=== PATIENT | male | born 1970 | race Caucasian/White ===

== ENCOUNTER 2016-11-19 16:40 | Inpatient (IN) ==
[2016-11-19 18:39] LABS: Basophils # 0.1 K/mcL (0.0-0.2); Basophils % 0.6 %; Eosinophils # 0.3 K/mcL (0.0-0.6); Eosinophils % 3.2 %; Hemoglobin 15.5 g/dL (12.9-16.9); Immature Granulocytes % 0.2 % (0-4); Lymphocytes # 2.4 K/mcL (0.6-4.6); Lymphocytes % 28.4 %; Mean Corpuscular Hemoglobin 28.3 pg (28.0-33.3); Mean Corpuscular Volume 85.8 fL (83.0-100.0); Mean Platelet Volume 10.5 fL (9.4-12.4); Monocytes # 0.6 K/mcL (0.0-1.3); Monocytes % 6.7 %; Neutrophils # 5.2 K/mcL (1.6-8.9); Platelet Count 237 K/mcL (140-400); Red Blood Count 5.48 M/mcL (4.19-5.50); Segmented Neutrophils % 60.9 %
[2016-11-19 18:44] LABS: Prothrombin Time 10.4 Seconds (9.4-12.1)
[2016-11-19 18:47] LABS: Activated Partial Thrombo Time 28.2 Seconds (26.0-36.0)
--- NOTE | 2016-11-19 18:47 | Emergency Department Note ---
Disposition Clinical Impression: Abnormal MRI of head, Hypertensive urgency Clinical Impression: (Ruled Out): Abnormal MRI of abdomen Disposition: Admitted As Inpatient Condition: Good Referrals: NO,PCP [Non-Partnered Physician] - Forms: ED Satisfaction Letter Time of Disposition: 21:12 Neuro HPI - General Chief Complaint: ED Neuro Symptoms/Deficit Stated Complaint: numbness to face Time Seen by Provider: 11/19/16 17:30 Source: patient Limitations: no limitations Nursing Notes Reviewed: Yes Vital Signs Reviewed: Yes - History of Present Illness HPI Narrative: 46-year-old male presents the emergency room for numbness to his face. Onset 3- 4 days ago. Thought it was worse on the right side. States he feels like the right side of his face was not working as well when he was trying to eat food over the past couple days. States he had some food that was falling off the crack of the right side of his mouth. His tongue felt weird at times that he is described as numbness or a taste sensation difference on the right side. He also had some left facial numbness at times. No arm or leg involvement. No vision changes. Denies any speech changes. Denies any strength problems. Does not feel weak on one side versus the other. He states he noticed his smile is crooked as well. Denies any other complaints. He does take a daily baby aspirin. Denies headache. States his blood pressures have been controlled at home on blood pressure medication. - Related Data Home Medications: Previous Rx's Medication Instructions Recorded MethylPREDNISolone [Medrol] 1 packet PO DAILY #1 packet 01/30/15 Albuterol Sulfate [Albuterol 1 puff IH Q6HR #1 hfa.aer.ad 07/30/16 Inhaler] Benzonatate [Tessalon] 100 mg PO TID #30 capsule 07/30/16 Levofloxacin [Levaquin] 750 mg PO DAILY #7 tablet 07/30/16 Promethazine/Codeine 5 ml PO Q4HR PRN #240 ml 07/30/16 [Phenergan/Codeine] Allergies/Adverse Reactions: Allergies Allergy/AdvReac Type Severity Reaction Status Date / Time No Known Allergies Allergy Verified 01/30/15 08:38 Review of Systems: Gen.: No fevers or chills or new weakness Eyes: Denies double vision or any vision changes Ears: Denies any otalgia Pharynx: Denies sore throat CV: Denies chest pain. Denies palpitations Respiratory: Denies any cough or sputum production. No shortness of breath. GI: Denies any nausea, vomiting, diarrhea, constipation. Denies abdominal pain Neuro: patient has noticed some numbness in the right and left cheek region. Skin: Denies any rashes or abrasions Psych: Denies any depression or suicidal or homicidal ideation Musculoskeletal: Denies any arthralgias or myalgias Past Medical History - Past Medical History Medical history: Reports: hyperlipidemia, hypertension Surgical history: Reports: other Psychiatric history: Reports: no psych history - Social History Smoking Status: Never smoker Smokeless Tobacco Status: No Alcohol use: Reports: none Drug use: Reports: none Physical Exam - General Limitations: no limitations General appearance: alert - Head Head exam: atraumatic, normocephalic - Eye Eye exam: Present: normal appearance, PERRL, EOMI - ENT ENT exam: normal exam - Neck Neck exam: Present: normal inspection - Chest Chest inspection: Present: normal inspection - Respiratory Respiratory exam: Present: normal lung sounds bilaterally - Cardiovascular Cardiovascular exam: Present: regular rate, normal rhythm, normal heart sounds - Abdominal Exam Abdominal exam: Present: soft, Non-Tender - Extremities Exam Extremities exam: Present: normal inspection - Back Exam Back exam: Present: normal inspection, full ROM - Neurological Exam Neurological exam: Present: alert, oriented X3, other - Expanded Neurological Exam Patient oriented to: Present: person, place, time Speech: Present: fluid speech Cranial nerves: EOM function (II, III, IV, ): Normal, facial sensation (V): Abnormal Right, facial palsy (VII): Abnormal Right (Patient has a right facial droop noted. Flattening of the right nasolabial fold.) Cerebellar function: finger to nose: Normal Motor strength - LUE: 5/5 Motor strength - RUE: 5/5 Motor strength - LLE: 5/5 Motor strength - RLE: 5/5 Coma Scale Eye Opening: Spontaneous Coma Scale Motor Response: Obeys Commands Coma Scale Verbal Response: Oriented Coma Scale Total: 15 - Psychiatric Psychiatric exam: Present: normal affect, normal mood - Skin Skin exam: Present: warm, dry, intact Course Course Narrative: Spoke with neurology.spoke with neurology. abnormal MRI brain. will need to be admitted for this. needs cartoids done and other imaging. also, has BP issues today. will admit for this as well. i have ordered hydralazine and ASA for him. Vital Signs Temperature 98.2 F 11/19/16 16:42 Pulse Rate 64 11/19/16 16:42 Respiratory Rate 18 11/19/16 16:42 Blood Pressure 189/111 11/19/16 16:42 O2 Sat by Pulse Oximetry 97 11/19/16 16:42 Temperature 98.2 F 11/19/16 16:42 Pulse Rate 63 11/19/16 20:47 Respiratory Rate 20 11/19/16 20:47 Blood Pressure 197/113 11/19/16 20:47 O2 Sat by Pulse Oximetry 95 11/19/16 20:47 Oxygen Delivery Oxygen Delivery Room Air Neuro Symptoms/Deficit - MDM Narrative Medical decision making narrative: Concerns for the right facial droop and flattening of the right nasolabial fold when smiling. ct brain neg. cxr neg. vss - Differential Diagnosis Likely: cerebrovascular accident - Medical Records Medical records reviewed: Yes I reviewed the patient's medical records. - Lab Data Lab results reviewed: Yes I reviewed the patient's lab results. Result diagrams: 11/19/16 18:20 11/19/16 18:20 Lab Results 11/19/16 11/19/16 11/19/16 Range/Units 18:20 18:20 18:20 WBC 8.6 (4.3-11.1) K/mcL RBC 5.48 (4.19-5.50) M/mcL Hgb 15.5 (12.9-16.9) g/dL Hct 47.0 (37.5-50.1) % MCV 85.8 (83.0-100.0) fL MCH 28.3 (28.0-33.3) pg MCHC 33.0 (31.6-35.5) g/dL RDW 14.0 (11.5-14.5) % Plt Count 237 (140-400) K/mcL MPV 10.5 (9.4-12.4) fL Immature Gran % 0.2 (0-4) % Seg Neutrophils % 60.9 % Lymphocytes % 28.4 % Monocytes % 6.7 % Eosinophils % 3.2 % Basophils % 0.6 % Neutrophils # 5.2 (1.6-8.9) K/mcL Lymphocytes # 2.4 (0.6-4.6) K/mcL Monocytes # 0.6 (0.0-1.3) K/mcL Eosinophils # 0.3 (0.0-0.6) K/mcL Basophils # 0.1 (0.0-0.2) K/mcL PT 10.4 (9.4-12.1) Seconds INR 1.0 APTT 28.2 (26.0-36.0) Seconds Sodium 142 (136-145) mEq/L Potassium 3.8 (3.5-4.5) mEq/L Chloride 107 (98-109) mEq/L Carbon Dioxide 27 (19-29) mEq/L BUN 21 (8-26) mg/dL Creatinine 0.95 (0.72-1.25) mg/dL Est GFR ( Amer) > 60 (> 60) Est GFR (Non-Af Amer) > 60 (> 60) BUN/Creatinine Ratio 22 (6-26) Glucose 87 (70-99) mg/dL Calculated Osmolality 296 (280-300) Calcium 8.9 (8.6-10.8) mg/dL Troponin I (0-0.03) ng/mL 11/19/16 Range/Units 18:20 WBC (4.3-11.1) K/mcL RBC (4.19-5.50) M/mcL Hgb (12.9-16.9) g/dL Hct (37.5-50.1) % MCV (83.0-100.0) fL MCH (28.0-33.3) pg MCHC (31.6-35.5) g/dL RDW (11.5-14.5) % Plt Count (140-400) K/mcL MPV (9.4-12.4) fL Immature Gran % (0-4) % Seg Neutrophils % % Lymphocytes % % Monocytes % % Eosinophils % % Basophils % % Neutrophils # (1.6-8.9) K/mcL Lymphocytes # (0.6-4.6) K/mcL Monocytes # (0.0-1.3) K/mcL Eosinophils # (0.0-0.6) K/mcL Basophils # (0.0-0.2) K/mcL PT (9.4-12.1) Seconds INR APTT (26.0-36.0) Seconds Sodium (136-145) mEq/L Potassium (3.5-4.5) mEq/L Chloride (98-109) mEq/L Carbon Dioxide (19-29) mEq/L BUN (8-26) mg/dL Creatinine (0.72-1.25) mg/dL Est GFR ( Amer) (> 60) Est GFR (Non-Af Amer) (> 60) BUN/Creatinine Ratio (6-26) Glucose (70-99) mg/dL Calculated Osmolality (280-300) Calcium (8.6-10.8) mg/dL Troponin I 0.06 H* (0-0.03) ng/mL - Radiology Data Radiology results reviewed: Yes I reviewed the patient's radiology results. - EKG Data EKG attestation: Yes I reviewed and interpreted this EKG. EKG results narrative: Rate is 60. Sinus rhythm. NJ interval 182. QRS 99. QTc 473. No signs of acute ischemia. TPA Checklist - LKW: 3-4.5 hrs Add. Warnings/Precautions Patient/family understanding: The patient/family members have been counseled and understood the risk, benefit , and alternatives of treatment.
[2016-11-19 18:51] LABS: BUN/Creatinine Ratio 22 (6-26); Blood Urea Nitrogen 21 mg/dL (8-26); Calcium 8.9 mg/dL (8.6-10.8); Carbon Dioxide 27 mEq/L (19-29); Chloride 107 mEq/L (98-109); Glucose 87 mg/dL (70-99); Osmolality,Calculated 296 (280-300); Potassium 3.8 mEq/L (3.5-4.5); Sodium 142 mEq/L (136-145); eGFR For African Americans > 60 (> 60); eGFR For Non-African Americans > 60 (> 60)
[2016-11-19] MEDS ORDERED: Aspirin 325 MG TABLET PO ONE (21:09)
[2016-11-19] MEDS ORDERED: Ondansetron 4 MG/2 ML VIAL IVP PRN (22:31)
[2016-11-19] MEDS ORDERED: Naloxone 0.4 MG/ML INJ IVP PRN (22:31)
[2016-11-19] MEDS: *HR* Heparin 5,000 UNIT/ML VIAL SQ SCH (23:15)
--- NOTE | 2016-11-19 23:18 | Internal Med History&Physical ---
Date of Encounter: 11/19/16 Time of Encounter: 23:00 Assessment and Plan (1) Facial droop Current visit: Yes Status: Acute Probable CVA Numbness and tingling over her right side of face and lips with facial nerve on the right side CT brain is negative for any acute intracranial process Chest x-ray is negative for any acute process EKG shows normal sinus rhythm with no acute ST-T changes MRI shows advanced small vessel ischemic changes with no acute infarct or hemorrhage Neurology, Dr. Fritz consult- will see in a.m. Continue aspirin and statin Echocardiogram and carotid Doppler pending Consult PT, OT, speech (2) Hypertension Current visit: Yes Status: Acute Essential hypertension, uncontrolled, continue home medications, continue IV hydralazine when necessary, monitor Qualifiers: Hypertension type: essential hypertension Qualified Code(s): I10 - Essential (primary) hypertension (3) Elevated troponin Current visit: Yes Status: Acute Slightly elevated troponin, we will trend the troponin Probably due to uncontrolled hypertension Continue aspirin and statin EKG normal sinus rhythm (4) Morbid obesity Current visit: Yes Status: Acute Advised weight loss Qualifiers: Obesity type: unspecified obesity type Qualified Code(s): E66.01 - Morbid ( severe) obesity due to excess calories (5) DVT prophylaxis Current visit: Yes Status: Acute Continue heparin subcutaneous Internal Medicine - H&P: HPI Admitted From: Emergency Dept History of present illness: Mr. Ledesma is a 46 year old male with past medical history of hyperlipidemia and hypertension. He presents to review with complaints of numbness and tingling over his face. He says it is mainly on the right side of his face. He feels numbness over his Route his lips. Started about 3-4 days ago. Symptoms have persisted and gradually worsened. Patient states he feels that his right side of face does not feel normal. He also complains of tingling of an numbness over his tongue and also a difference in his stay sensation. Patient does not have any focal deficits in upper or lower extremities. Normal speech. No visual changes. Patient does complain of mild blurring of vision but otherwise his vision and speech are fairly within normal limits. Patient denies chest pain, denies palpitations denies dizziness denies lightheadedness denies shortness of breath or any other problems. Symptoms have been persisting , with no alleviating or aggravating factors. No other associated symptoms. On examination patient is awake and alert. Not in any acute distress. He is able to provide history. Patient does have obvious right-sided facial droop blood pressure has been uncontrolled. Initial ED workup revealed normal labs except for mildly elevated troponin. We will trend her troponin. Unclear as to what caused the bump in troponin. Patient has been explained about his condition and plan of care in detail. He understood and agreed has not answered questions. Neurologist Dr. Fritz has been consulted from the ED, he will see patient in the a.m. CODE STATUS full code. Past Med Surg Social Fam HX - Past Medical History Medical history: hyperlipidemia, hypertension Psychiatric history: no psych history - Past Surgical History Surgical History: other (carpal tunnel surgery b/l) - Social History Smoking Status: Never smoker Smokeless Tobacco Status: No Alcohol use: none Drug use: none - Family History Father Adopted: [place]: Roberto Ledesma Age: 76 Family Member Ethnicity: Non- Living Status: Still Living Hx Family Cardiac Disorders: Yes Hx Family Respiratory Disorders: No Hx Family Cancer: No Hx Family GI Disorders: No Hx Family Genitourinary Disorders: No Internal Medicine - H&P: Meds Allopurinol [Zyloprim 300 MG] 300 mg PO DAILY 11/19/16 [History] Amlodipine Besylate 10 mg PO DAILY 11/19/16 [History] Aspirin Enteric Coated [Aspirin EC] 81 mg PO DAILY 11/19/16 [History] Doxazosin [Cardura] 4 mg PO BID 11/19/16 [History] Metoprolol [Lopressor] 100 mg PO BID 11/19/16 [History] Allergies No Known Allergies Allergy (Verified 01/30/15 08:38) All Systems PM: A 10-system review of systems was performed and is negative for pertinent findings except as documented above in the HPI. - Constitutional Vitals: Temp Pulse Resp BP Pulse Ox 98.0 F 63 15 194/98 92 11/19/16 22:43 11/19/16 22:43 11/19/16 22:43 11/19/16 22:43 11/19/16 22:43 General appearance: Present: A&O X 3, morbidly obese, no acute distress, answers questions appropriately - Head Head exam: Present: atraumatic - Eye Eye exam: Present: EOMI - ENT ENT exam: Present: mucous membranes moist - Neck Neck exam general surgery: Present: supple - Respiratory Respiratory exam: Present: CTAB. Absent: rhonchi, wheezes - Cardiovascular Cardiovascular exam: Present: RRR, +S1, +S2 - GI/Abdominal GI/Abdominal exam: Present: distended (Obese), soft. Absent: guarding, tenderness - Extremities Exam Extremities exam: Present: pedal edema (Bilateral lower legs 3+ pitting), radial pulses palpable and symetrical. Absent: cyanotic, tenderness - Neurological Exam Neurological exam: Present: alert, oriented X3, no focal deficits, strengths equal and symetr throughout, facial droop (Right-sided). Absent: speech deficit Internal Med - H&P Results - Labs CBC & Chem 7: 11/19/16 18:20 11/19/16 18:20
[2016-11-20 01:15] LABS: Hematocrit 47.7 % (37.5-50.1); Hemoglobin 15.5 g/dL (12.9-16.9); Mean Corpuscular HGB Conc 32.5 g/dL (31.6-35.5); Mean Corpuscular Hemoglobin 27.6 pg (28.0-33.3); Mean Platelet Volume 10.2 fL (9.4-12.4); Platelet Count 198 K/mcL (140-400); Red Blood Count 5.61 M/mcL (4.19-5.50); Red Cell Distribution Width 13.9 % (11.5-14.5)
[2016-11-20 01:27] LABS: BUN/Creatinine Ratio 22 (6-26); Blood Urea Nitrogen 17 mg/dL (8-26); Carbon Dioxide 20 mEq/L (19-29); Chloride 110 mEq/L (98-109); Chol/HDL Ratio 5.8 (0-4.9); Cholesterol 203 mg/dL (< 200); Glucose 79 mg/dL (70-99); HDL Cholesterol 35 mg/dL (40-59); LDL Cholesterol,Calculated 140 mg/dL (0-99); Magnesium 2.1 mg/dL (1.6-2.6); Osmolality,Calculated 288 (280-300); Potassium 3.6 mEq/L (3.5-4.5); Sodium 139 mEq/L (136-145); Triglycerides 140 mg/dL (< 150); eGFR For African Americans > 60 (> 60); eGFR For Non-African Americans > 60 (> 60)
[2016-11-20] MEDS: Acetaminophen 325 MG TABLET PO PRN ×2 (02:24→10:11)
[2016-11-20] MEDS ORDERED: Famotidine 20 MG/2 ML VIAL IVP SCH (06:00)
[2016-11-20] MEDS: Acetaminophen/Butalbital/CaffeineTABLET PO PRN ×2 (06:41→11:52)
[2016-11-20] MEDS ORDERED: Aspirin Enteric Coated 81 MG Tablet PO SCH (09:00)
[2016-11-20] MEDS ORDERED: Metoprolol 100 MG TABLET PO SCH (09:00)
[2016-11-20] MEDS ORDERED: amLODIPine 5 MG TABLET PO SCH (09:00)
[2016-11-20] MEDS ORDERED: Perflutren Lipid Microsphere 1.3 ML in 0.9 % Sodium Chloride 8.7 ML IVP ONE (09:27)
[2016-11-20] MEDS: *HR* Heparin 5,000 UNIT/ML VIAL SQ SCH ×2 (10:10→16:34)
--- NOTE | 2016-11-20 11:06 | Neurology - Consult Note ---
<Juan Montenegro - Last Filed: 11/20/16 13:38> Date of Encounter: 11/20/16 Time of Encounter: 10:30 Assessment and Plan (1) CVA (cerebral vascular accident) Current Visit: Yes Status: Acute Patient's current assessment is to discern stroke/TIA versus Ceja's palsy. Patient's history of sudden onset of right-sided facial sensation changes numbness tingling and drooping of the right corner of his mouth extension across his forehead which is currently improved some. Patient states she had difficulty closing his right eye time and lifting his right brow as well as difficulty mobilizing the food from his right lower vehicle area and decrease in taste. Patient states his food tasted bland. Patient did not think to come to the hospital for evaluation until he noticed an elevation of his blood pressure 1 day ago. Onset initial symptoms somewhere around 4 days ago. Patient's complete physical exam to include neurologic exam was unremarkable with the exception of slight asymmetry of the face was drooping to the right corner of the mouth more noticeable with smiling. Patient has no loss of sensation and mild decrease in strength in elevation of right brow and unable to maintain pressure in his cheeks. The patient feels his cheeks with air he is unable to form a tight seal with his lips. History of Present Illness Chief complaint: Right sided facial weakness HPI: Mr. Ledesma is a 46 year old male with a past medical history for hypertension and hyperlipidemia. Patient states that approximately 4 days ago. Patient states he noticed a numbing sensation to the right side of his face upon awakening and thoughts he placed too much pressure on that side of face while sleeping but while attempting to eat food around lunchtime, he noticed some difficulty trying to mobilize food from the right pupil area and also noticed a change in taste of his food. He stated reduction of flavor. His food tasted almost blind. Patient states no change in sensation smell, no change in hearing, noticed some fuzziness to his vision. Denies chest pain, extremity weakness, shortness of breath any worsening usual (has shortness of breath with activity), unsure of any shortness of breath episodes at rest. Patient states that he has noticed some increased frequency and episodes of fluttering in his chest prior to initial onset of his symptoms. Patient states he attributed everything to excessive body weight and being out of shape and thought he placed much pressure on the right side of his face during sleep. Patient was worried about his blood pressure which she states was 179/110 which prompted him to be seen in the emergency department and that to his admission Patient's currently unemployed secondary to lower back chronic pain issues, patient denies tobacco use, patient denies alcohol use, patient denies illicit drug use. Patient complains of a headache overnight and started approximately 2100 hrs. when they go bilaterally squeezing top of his head with increased pressure-like pain behind both eyes. Began as a 4/10 and elevated to 8/10 currently 2/10. Patient also reports having acute blurriness to his vision currently resolved. Past Med Surg Social Fam HX - Past Medical History Attestation: Yes The following information was validated with the patient. Source: patient Medical history: hyperlipidemia, hypertension Psychiatric history: no psych history - Past Surgical History Surgical History: other (carpal tunnel surgery b/l) - Social History Smoking Status: Never smoker Smokeless Tobacco Status: No Alcohol use: none Drug use: none - Family History Father Adopted: [place]: Roberto Ledesma Age: 76 Family Member Ethnicity: Non- Living Status: Still Living Hx Family Cardiac Disorders: Yes Hx Family Respiratory Disorders: No Hx Family Cancer: No Hx Family GI Disorders: No Hx Family Genitourinary Disorders: No Medications and Allergies Allopurinol [Zyloprim 300 MG] 300 mg PO DAILY 11/19/16 [History] Amlodipine Besylate 10 mg PO DAILY 11/19/16 [History] Aspirin Enteric Coated [Aspirin EC] 81 mg PO DAILY 11/19/16 [History] Doxazosin [Cardura] 4 mg PO BID 11/19/16 [History] Metoprolol [Lopressor] 100 mg PO BID 11/19/16 [History] Allergies No Known Allergies Allergy (Verified 01/30/15 08:38) All Systems: A 10-system review of systems was performed and is negative for pertinent findings except as documented above in the HPI. - Constitutional Constitutional ROS IM: no weakness - Nose, Mouth, Throat Nose, mouth and throat: as per HPI, no abnormal hearing, no dental pain, no dry mouth, no dysphagia, no epistaxis, no facial pain, no lip swelling, no mouth lesions, no mouth pain, no nasal congestion, no nasal discharge, no nasal obstruction, no neck pain, no nose pain, no odynophagia, no sinus pressure, no sore throat, no throat swelling, no tongue swelling, no vertigo Physical Examination - Vital Signs Vital Signs: Initial Vital Signs Temp Pulse Resp BP Pulse Ox 98.2 F 64 18 189/111 97 11/19/16 16:42 11/19/16 16:42 11/19/16 16:42 11/19/16 16:42 11/19/16 16:42 - Exam Exam: -General Appearance: Patient is a 46-year-old male who is alert and oriented 3 lying in bed on his left side. Patient does not appear toxic. Patient is in no acute distress, -Neurological exam: Cranial nerves II-12 intact, no focal deficits observed, strength equal 5/5 bilaterally in upper and lower extremities, cerebellar motion test negative with rapidly alternating motions bilaterally upper and lower extremities performed without issue. Negative loss of sensation - Head Head exam: atraumatic, normocephalic, normal inspection - Eye Eye exam: Present: normal appearance, PERRL, EOMI, negative for scleral icterus negative for conjunctival pallor, no nystagmus - ENT ENT exam: normal exam, normal oropharynx, mucous membranes moist, poor dentition - Neck Neck exam: Present: normal inspection, full ROM, trachea midline, negative JVD - Chest Chest inspection: Present: Patient has bilateral equal rise and fall of chest wall. Non-tender to palpation. - Respiratory Respiratory exam: Clear to auscultation bilaterally without wheezes rales or rhonchi Cardiovascular Cardiovascular exam: Present: regular rate, normal rhythm, normal heart sounds, without murmurs rubs or gallops. - Abdominal Exam Abdominal exam: Present: soft, nondistended, Non-Tender light and deep palpation in all quadrants. Bowel sounds normoactive throughout all 4 quadrants. Negative for hyper or hyperresonance. - Extremities Exam Extremities exam: Present: normal inspection, full ROM pulses equal regular bilaterally in upper and lower extremities at radial and dorsal pedal locations , - Back Exam Back exam: Present: normal inspection, full ROM. - Psychiatric Psychiatric exam: Present: normal affect, normal mood - Skin Skin exam: Present: warm, dry, intact, normal color - Constitutional General appearance: comfortable - Neurologic Detailed motor examination: grossly full strength in all extremities, full strength in all major muscle groups Motor examination - right side: 5/5: deltoids, biceps, triceps, wrist flexion, wrist extension, tax accounting assistant, hip flexors, tibialis Anterior, quadriceps, toe extension (EHL), plantarflexion Motor examination - left side: 5/5: deltoids, biceps, triceps, wrist flexion, wrist extension, hip flexors, tax accounting assistant, quadriceps, tibialis Anterior, toe extension (EHL), plantarflexion Detailed sensory examination: intact, light touch Reflex and gait examination: intact Reflexes: Biceps: 2+, Triceps: 2+, Brachioradialis: 2+, Patella: 2+, Achilles: 2 + Mental Status Examination: awake, alert, oriented to person, oriented to place, oriented to time, follows commands appropriately, answers questions appropriately, no agnosia, no aphasia, no aproxia Cranial nerve examination: PERRL, EOMI, visual vicente intact, corneal reflexes brisk symmetrically, sensory to face intact, mastication intact, no dysarthria, hearing is intact symmetrically, soft palate elevates bilaterally upon phonation , gag reflex intact, flexes SCM and trapezius muscles symmetrically with full power, tongue protrudes midline, no atrophy or facial fasiculations present Results - Laboratory Findings CBC and BMP: 11/20/16 00:51 06 00:51 Abnormal lab findings: Abnormal lab results RBC 5.61 M/mcL (4.19-5.50) H 11/20/16 00:51 MCH 27.6 pg (28.0-33.3) L 11/20/16 00:51 Chloride 110 mEq/L (98-109) H 11/20/16 00:51 Troponin I 0.05 ng/mL (0-0.03) H* 11/20/16 07:14 Cholesterol 203 mg/dL (< 200) H 11/20/16 00:51 LDL Cholesterol, Calc 140 mg/dL (0-99) H 11/20/16 00:51 HDL Cholesterol 35 mg/dL (40-59) L 11/20/16 00:51 Cholesterol/HDL Ratio 5.8 (0-4.9) H 11/20/16 00:51 - Diagnostic Findings EKG: image reviewed Additional findings: Chest X-Ray 11/19/16 18:03 IMPRESSION: No acute process. D/ / Diogenes Joya MD / Diogenes Joya MD Interpreting Provider: Diogenes Joya MD Head CT 11/19/16 18:08 IMPRESSION: No acute intracranial abnormality. D/ / Bhanu Jain MD / Bhanu Jain MD Interpreting Provider: Bhanu Jain MD Brain MRI 11/19/16 18:51 IMPRESSION: Multifocal increased T2 and FLAIR signal in the white matter as described. Advanced small vessel ischemic changes are favored over a demyelinating process. Question small hyperintense T2 signal lesion in the base of the pituitary. No acute infarct, mass or hemorrhage D/ / Wing Valle / Wing Valle Interpreting Provider: Wing Valle Consult Discharge Plan - Plan Referrals: Mario Neal DO [Primary Care Provider] - <Diogenes Fritz - Last Filed: 11/20/16 15:31> Date of Encounter: 11/20/16 Time of Encounter: 15:22 Assessment and Plan (1) Right-sided Ceja's palsy Current Visit: Yes Status: Acute This gentleman is experiencing right-sided Ceja's palsy. His neurologic examination is consistent with a lower motor neuron seventh nerve palsy. He has weakness of the right frontalis muscle, weakness of the right orbicularis oculi slight flattening of the nasolabial fold and slight weakness of the right orbicularis skyler. He has normal strength bulk and tone of the upper and lower extremities throughout. He also had some minor differences in taste sensation. I am encouraged however that he will make a full recovery. I would recommend checking a Lyme titer. I would also recommend discharging him on a week of acyclovir and a tapering dose of prednisone. Although his MRI scan was negative for acute infarct, it did show evidence of chronic ischemic microvascular changes scattered throughout. His blood pressure was severely elevated upon admission with a systolic of 190s to 200 and diastolic as high as 100+. I did recommend that he follow up with his family care provider upon discharge for aggressive management of his hypertension. He also has a diagnosis of sleep apnea, however he is not currently compliant with his CPAP. I did spend time to educate him about the significance of sleep apnea as it pertains to the development of diabetes, myocardial infarction, stroke, and sudden . May discharge him at your discretion. History of Present Illness HPI: The chart was reviewed, the patient was seen and examined independently. The case was discussed with Dr. Montenegro. I agree with his assessment as stated above. All Systems: A 10-system review of systems was performed and is negative for pertinent findings except as documented above in the HPI. Review of Systems: 10 point review of systems is consistent with a history of present illness and is otherwise negative. Physical Examination - Vital Signs Vital Signs: Initial Vital Signs Temp Pulse Resp BP Pulse Ox 98.2 F 64 18 189/111 97 11/19/16 16:42 11/19/16 16:42 11/19/16 16:42 11/19/16 16:42 11/19/16 16:42 Results - Laboratory Findings CBC and BMP: 11/20/16 00:51 11/20/16 00:51 Abnormal lab findings: Abnormal lab results RBC 5.61 M/mcL (4.19-5.50) H 11/20/16 00:51 MCH 27.6 pg (28.0-33.3) L 11/20/16 00:51 Chloride 110 mEq/L (98-109) H 11/20/16 00:51 Troponin I 0.05 ng/mL (0-0.03) H* 11/20/16 12:42 Cholesterol 203 mg/dL (< 200) H 11/20/16 00:51 LDL Cholesterol, Calc 140 mg/dL (0-99) H 11/20/16 00:51 HDL Cholesterol 35 mg/dL (40-59) L 11/20/16 00:51 Cholesterol/HDL Ratio 5.8 (0-4.9) H 11/20/16 00:51
--- NOTE | 2016-11-20 15:41 | Electrocardiograph Report ---
[address] [address] Test Date: 2016-11-19 Pat Name: Roberto Ledesma Department: 102 Room: 2A34 Gender: M Ict Trainer: Silvia : 1970 Requested By: Reena Hdz Order Number: [id number] Reading MD: Samantha Mckinney Measurements Intervals [place] Rate: 60 P: 41 AK: 182 QRS: 22 QRSD: 99 T: 35 QT: 472 QTc: 473 Interpretive Statements SINUS RHYTHM PROLONGED QT INTERVAL Electronically Signed On 11-20-2016 15:40:02 EDT by Samantha Mckinney
--- NOTE | 2016-11-20 15:44 | Discharge Summary ---
Date of Encounter: 11/20/16 Time of Encounter: 15:00 - Discharge Diagnosis (1) Morbid obesity Priority: Secondary Status: Acute Qualifiers: Obesity type: unspecified obesity type Qualified Code(s): E66.01 - Morbid ( severe) obesity due to excess calories (2) Facial droop Priority: Primary Status: Acute (3) DVT prophylaxis Priority: Secondary Status: Acute (4) Hypertension Priority: Secondary Status: Acute Qualifiers: Hypertension type: essential hypertension Qualified Code(s): I10 - Essential (primary) hypertension (5) Right-sided Ceja's palsy Priority: Primary Status: Acute - Discharge Medications Prescriptions: Acyclovir [Zovirax] 200 mg PO 5XD #35 capsule predniSONE [PredniSONE] See Taper PO DAILY #21 tablet Home Medications: Allopurinol [Zyloprim 300 MG] 300 mg PO DAILY 11/19/16 [History] Amlodipine Besylate 10 mg PO DAILY 11/19/16 [History] Aspirin Enteric Coated [Aspirin EC] 81 mg PO DAILY 11/19/16 [History] Doxazosin [Cardura] 4 mg PO BID 11/19/16 [History] Metoprolol [Lopressor] 100 mg PO BID 11/19/16 [History] Acyclovir [Zovirax] 200 mg PO 5XD #35 capsule 11/20/16 [Rx] predniSONE [PredniSONE] See Taper PO DAILY #21 tablet 11/20/16 [Rx] Allergies/Adverse Reactions: Allergies No Known Allergies Allergy (Verified 01/30/15 08:38) Procedures/tests Complete & Pending: Procedures Performed prior 72 hours Category Date Time Status ECG 12 lead ECG [ECG] Routine Y 11/19/16 18:57 Completed EV carotid duplex imaging BI Routine Y 11/19/16 23:44 Completed Date of admission: 11/19/16 23:36 Primary care physician: Mario Neal DO Discharging clinician: Reena Hdz Anticipated date of discharge: 11/20/16 - Patient Status Disposition: Home, Self-Care Condition: Good Overall status at discharge: patient is progressing back to baseline - Discharge Instructions Follow Up With: Mario Neal DO [Primary Care Provider] - - Diet and Activity Activity: increase activity as tolerated Diet: advance to your usual diet Interval History: Mr. Ledesma is a 46 year old male with past medical history of hyperlipidemia and hypertension. He presents to review with complaints of numbness and tingling over his face. He says it is mainly on the right side of his face. He feels numbness over his Route his lips. Started about 3-4 days ago. Symptoms have persisted and gradually worsened. Patient states he feels that his right side of face does not feel normal. He also complains of tingling of an numbness over his tongue and also a difference in his stay sensation. Patient does not have any focal deficits in upper or lower extremities. Normal speech. No visual changes. Patient does complain of mild blurring of vision but otherwise his vision and speech are fairly within normal limits. Patient denies chest pain, denies palpitations denies dizziness denies lightheadedness denies shortness of breath or any other problems. Symptoms have been persisting , with no alleviating or aggravating factors. No other associated symptoms. On examination patient is awake and alert. Not in any acute distress. He is able to provide history. Patient does have obvious right-sided facial droop blood pressure has been uncontrolled. Initial ED workup revealed normal labs except for mildly elevated troponin. We will trend her troponin. Unclear as to what caused the bump in troponin. Patient has been explained about his condition and plan of care in detail. He understood and agreed has not answered questions. Neurologist Dr. Fritz has been consulted from the ED, he will see patient in the a.m. CODE STATUS full code. Hospital course: Mr. Ledesma is a 46 year old male admitted for right sided facial drop. Patient had MRI done, which is unremarkable. Neurology consult was called and saw patient. Diagnosed as Ceja's palsy. Patient will discharge today with taper down steroid and acyclovir x 7 days, per neurology. I saw and examined pt today. He feels the facial drop has improved. Vitals stable. No other neuro deficits. Pt is stable to discharge home. - Time Spent with Patient Total time spent providing and/or coordinating discharge services: 40 min Greater than 30 minutes - Constitutional Vitals: Temp Pulse Resp BP Pulse Ox 97.7 F 52 14 158/96 96 11/20/16 12:00 11/20/16 12:00 11/20/16 12:00 11/20/16 12:00 11/20/16 12:00 General appearance: Present: A&O X 3, morbidly obese, no acute distress, answers questions appropriately - Head Head exam: Present: atraumatic, normocephalic - Eye Eye exam: Present: PERRL, conjuntiva pink, sclera anicteric Pupils: Present: PERRL - Neck Neck exam general surgery: Present: supple, trachea midline. Absent: lymphadenopathy - Respiratory Respiratory exam: Present: CTAB. Absent: accessory muscle use, rales, rhonchi, wheezes - Cardiovascular Cardiovascular exam: Present: RRR, +S1, +S2. Absent: diastolic murmur, gallop, rubs, systolic murmur - GI/Abdominal GI/Abdominal exam: Present: normal bowel sounds, soft, no peritoneal signs. Absent: distended, tenderness - Extremities Exam Extremities exam: Present: warm, radial pulses palpable and symetrical. Absent : calf tenderness, cyanotic, pedal edema - Neurological Exam Neurological exam: Present: CN II-XII intact, oriented X3, no focal deficits, facial droop (Right side). Absent: pronater drift, speech deficit - Skin Skin exam: Present: dry, intact
[2016-11-20] MEDS ORDERED: predniSONE 20 MG TABLET PO SCH (15:45)
[2016-11-20 15:47] VITALS: BP 146/80
[2016-11-20] MEDS ORDERED: Acyclovir 200 MG CAPSULE PO SCH (16:00)
[2016-11-20] MEDS ORDERED: Famotidine 20 MG TABLET PO SCH (16:30)
--- NOTE | 2016-11-20 20:07 | Carotid Imaging Report ---
Carotid Duplex Patient Name:Roberto Ledesma Order Number:[id number] Procedure Date:11/20/2016 Date:1970Age:46 yrs Gender:Male Location:[facility] Room #: 2A34 Banking Supervisor:Fatemeh Baxter MD:Conrado Dick MD podiatric medicine professor:DO Aiem García MD:Wing Vale MD Study Quality:Adequate Primary Indications:Cerebral vascular accident Risk Factors Yes/No Hypertension Yes Impressions: The bilateral carotid arteries are normal throughout. Recommendations: After imaging the patient returned to their room. Findings Carotid Duplex: Kent scale imaging combined with Doppler flow analysis suggests normal findings bilaterally. Prior Study: No prior study available for comparison. Carotid Results Right PSV EDV Assessment Proximal CCA 141 24 Normal Mid CCA 130 21 Normal Distal CCA 131 21 Normal Bifurcation 116 25 Normal Proximal ICA 88 21 Normal Mid ICA 58 29 Normal Distal ICA 54 27 Normal ECA 180 27 Normal Vertebral Artery 23 8 Normal Left PSV EDV Assessment Proximal CCA 153 28 Normal Mid CCA 117 28 Normal Distal CCA 108 27 Normal Bifurcation 80 19 Normal Proximal ICA 73 13 Normal Mid ICA 68 24 Normal Distal ICA 60 23 Normal ECA 162 17 Normal Vertebral Artery 47 19 Normal Ratio's Right ICA/CCA Ratio: 0.68 ICA/CCA Values: 88/130 Left ICA/CCA Ratio: 0.62 ICA/CCA Values: 73/117 Updated by Wing Vale MD on 11/20/2016 8:02:47 PM electronically signed on 11/20/2016 8:02:59 PM with status of Final
== END 2016-11-20 16:59 | disposition home or self-care (01) | DRG 48 ==
LOC: EMEROO 16:40 → 2ANU 16:40
PROVIDERS: ADMIT Family Medicine; ATTEND Internal Medicine